=== PATIENT | female | born 1975 | race Two or more races ===

== ENCOUNTER → 2023-02-03 | Outpatient (CLI) | payer BC | END | disposition home or self-care (01) | LOC: LAB 08:39 | PROVIDERS: ATTEND Licensed Practical Nurse | DX: N39.0 Urinary tract infection, site not specified (principal) | CPT/HCPCS: 87086 ==

== ENCOUNTER → 2023-03-07 | Outpatient (CLI) | payer BC ==
[2023-03-07 09:31] LABS: Basophils # (auto) 0 10 ^3/uL (0-0.2); Basophils % (auto) 0.6 % (0.0-2.0); Eosinophils # (auto) 0.4 10 ^3/uL (0-0.8); Eosinophils % (auto) 5.3 % (0.0-7.0); Hematocrit 42.8 % (36.0-46.0); Hemoglobin 14.5 g/dL (12.2-16.2); Lymphocytes # (auto) 1.6 10 ^3/uL (0.4-5.4); Lymphocytes % (auto) 23.5 % (10.0-50.0); Mean Corpuscular Hemoglobin 30.3 pg (28.0-32.0); Mean Corpuscular Volume 89.1 fL (80.0-100.0); Monocytes # (auto) 0.6 10 ^3/uL (0-1.3); Monocytes % (auto) 8.7 % (0.0-12.0); Neutrophils # (auto) 4.2 10 ^3/uL (1.6-8.6); Neutrophils % (auto) 61.9 % (37.0-80.0); Red Blood Cells 4.81 10^6/uL (4.0-5.20); Red Cell Distribution Width 13.4 % (11.8-14.3); White Blood Cell 6.8 10^3/uL (4.4-10.8)
[2023-03-07 10:41] LABS: Albumin 3.5 g/dL (3.4-5.0); Calcium 8.8 mg/dL (8.5-10.1); Potassium 4.8 mmol/L (3.5-5.1)
[2023-03-07 10:46] LABS: BUN/Creatinine Ratio 8.5 (10.0-20.0); Bilirubin, Total 0.7 mg/dL (0.2-1.0); Total Protein 6.8 g/dL (6.4-8.2)
== END | disposition home or self-care (01) ==
LOC: LAB 09:21
DX: Z00.01 Encounter for general adult medical examination with abnormal findings (principal); I10 Essential (primary) hypertension; E66.09 Other obesity due to excess calories
CPT/HCPCS: 36415; 80053; 80061; 82306; 84439; 84443; 85025

== ENCOUNTER → 2024-04-05 | Outpatient (CLI) | payer BC ==
[2024-04-05 07:59] LABS: Basophils # (auto) 0 10 ^3/uL (0-0.2); Basophils % (auto) 0.7 % (0.0-2.0); Eosinophils # (auto) 0.3 10 ^3/uL (0-0.8); Eosinophils % (auto) 4.9 % (0.0-7.0); Hematocrit 40.3 % (36.0-46.0); Hemoglobin 14.1 g/dL (12.2-16.2); Lymphocytes # (auto) 1.1 10 ^3/uL (0.4-5.4); Lymphocytes % (auto) 18.1 % (10.0-50.0); Mean Corpuscular Hemoglobin 31.5 pg (28.0-32.0); Mean Corpuscular Hgb Conc. 34.9 g/dL (32.0-36.0); Mean Corpuscular Volume 90.2 fL (80.0-100.0); Monocytes # (auto) 0.4 10 ^3/uL (0-1.3); Monocytes % (auto) 6.8 % (0.0-12.0); Neutrophils # (auto) 4.4 10 ^3/uL (1.6-8.6); Neutrophils % (auto) 69.5 % (37.0-80.0); Nucleated Red Blood Cells % 0.1 %; Red Blood Cells 4.46 10^6/uL (4.0-5.20); Red Cell Distribution Width 12.5 % (11.8-14.3); White Blood Cell 6.3 10^3/uL (4.4-10.8)
[2024-04-05 08:28] LABS: Alanine Aminotransferase 49 U/L (7-40); Albumin 4.3 g/dL (3.2-4.8); Alkaline Phosphatase 97 U/L (46-116); Anion Gap 6 (5-15); Aspartate Aminotransferase 15 U/L (13-40); BUN/Creatinine Ratio 9.6 (10.0-20.0); Blood Urea Nitrogen 10 mg/dL (9-23); Carbon Dioxide 26 mmol/L (20-30); Chloride 108 mmol/L (98-107); Cholesterol 161 mg/dL (< 200); Glucose 109 mg/dL (74-106); HDL Cholesterol 39 mg/dL (40-59); LDL Cholesterol 95 mg/dL (< 100); Potassium 4.5 mmol/L (3.5-5.1); Sodium 140 mmol/L (136-145); Triglycerides 199 mg/dL (< 150)
[2024-04-05 08:29] LABS: Bilirubin, Total 0.5 mg/dL (0.2-1.0); Total Protein 6.2 g/dL (5.7-8.2)
== END | disposition home or self-care (01) ==
LOC: LAB 07:30
PROVIDERS: ATTEND Nurse Practitioner Family
DX: I10 Essential (primary) hypertension (principal); E66.01 Morbid (severe) obesity due to excess calories; E78.5 Hyperlipidemia, unspecified; E55.9 Vitamin D deficiency, unspecified
CPT/HCPCS: 36415; 80053; 80061; 82306; 84439; 84443; 85025

== ENCOUNTER → 2024-11-01 | Outpatient (CLI) | payer BC ==
[2024-11-01 08:38] LABS: Basophils # (auto) 0 10 ^3/uL (0-0.2); Basophils % (auto) 0.9 % (0.0-2.0); Eosinophils # (auto) 0.1 10 ^3/uL (0-0.8); Hemoglobin 14.8 g/dL (12.2-16.2); Lymphocytes # (auto) 1.2 10 ^3/uL (0.4-5.4); Lymphocytes % (auto) 24.4 % (10.0-50.0); Mean Corpuscular Hemoglobin 29.8 pg (28.0-32.0); Mean Corpuscular Hgb Conc. 33.5 g/dL (32.0-36.0); Monocytes # (auto) 0.4 10 ^3/uL (0-1.3); Monocytes % (auto) 8.9 % (0.0-12.0); Neutrophils # (auto) 3.2 10 ^3/uL (1.6-8.6); Neutrophils % (auto) 63.8 % (37.0-80.0); Nucleated Red Blood Cells % 0.1 %; Platelet Count (auto) 178 10^3/uL (140-450); Red Blood Cells 4.95 10^6/uL (4.0-5.20); Red Cell Distribution Width 12.8 % (11.8-14.3); White Blood Cell 5.1 10^3/uL (4.4-10.8)
[2024-11-01 09:11] LABS: Albumin 4.8 g/dL (3.2-4.8); Alkaline Phosphatase 82 U/L (46-116); Anion Gap 9 (5-15); Aspartate Aminotransferase 20 U/L (13-40); BUN/Creatinine Ratio 15.5 (10.0-20.0); Blood Urea Nitrogen 15 mg/dL (9-23); Calcium 9.8 mg/dL (8.7-10.4); Carbon Dioxide 25 mmol/L (20-31); Chloride 104 mmol/L (98-107); Glucose 101 mg/dL (74-106); Potassium 4.6 mmol/L (3.5-5.1); Sodium 138 mmol/L (136-145); Total Protein 6.9 g/dL (5.7-8.2); Triglycerides 115 mg/dL (< 150)
[2024-11-01 09:12] LABS: Bilirubin, Total 0.8 mg/dL (0.2-1.0); Cholesterol 182 mg/dL (< 200); HDL Cholesterol 40 mg/dL (40-59)
[2024-11-01 09:23] LABS: Alanine Aminotransferase 45 U/L (7-40); LDL Cholesterol 129 mg/dL (< 100)
== END | disposition home or self-care (01) ==
LOC: LAB 08:15
PROVIDERS: ATTEND Nurse Practitioner Family
DX: I10 Essential (primary) hypertension (principal); E55.9 Vitamin D deficiency, unspecified; E78.1 Pure hyperglyceridemia; Z00.01 Encounter for general adult medical examination with abnormal findings
CPT/HCPCS: 36415; 80053; 80061; 82306; 84443; 85025

== ENCOUNTER 2025-05-17 10:07 | Day surgery (SDC) | payer BC ==
[2025-05-12 09:20] LABS: Hematocrit 42.9 % (36.0-46.0); Hemoglobin 15.0 g/dL (12.2-16.2); Mean Corpuscular Hemoglobin 31.0 pg (28.0-32.0); Mean Corpuscular Volume 88.6 fL (80.0-100.0); Nucleated Red Blood Cells % 0.1 %
[2025-05-12 09:37] LABS: INR 0.98 (0.9-1.15); Partial Thromboplastin Time 28.8 SEC (24.5-34.5); Prothrombin Time 10.4 sec (9.3-11.8)
[2025-05-12 10:05] LABS: Albumin 4.5 g/dL (3.2-4.8); Alkaline Phosphatase 92 U/L (46-116); Anion Gap 8 (5-15); BUN/Creatinine Ratio 7.0 (10.0-20.0); Bilirubin, Total 0.8 mg/dL (0.2-1.0); Calcium 9.2 mg/dL (8.7-10.4); Carbon Dioxide 27 mmol/L (20-31); Chloride 105 mmol/L (98-107); Glucose 103 mg/dL (74-106); Potassium 4.4 mmol/L (3.5-5.1); Sodium 140 mmol/L (136-145); Total Protein 6.9 g/dL (5.7-8.2)
[2025-05-12 10:07] LABS: Alanine Aminotransferase 41 U/L (7-40); Blood Urea Nitrogen 7 mg/dL (9-23)
[~2025-05-17] VITALS: Ht 172.7 cm; Wt 113.4 kg
[~2025-05-17 10:07] MED LIST: CHOL20007 OR; LACTCAP35 OR; OMEP20TA PO
[2025-05-17] MEDS ORDERED: SODIUM CHLORIDE LOCK 10 ML ONE (11:47)
[2025-05-17 12:15] VITALS: PULSE 82; RESP 12; O2SAT 100
[2025-05-17] MEDS: fentaNYL CITRATE 100 MCG/2 ML VL ONE ×2 (12:19→12:22)
[2025-05-17] MEDS: diphenhdrAMINE HCL 50 MG/1 ML VL ONE (12:19)
[2025-05-17] MEDS: MIDAZOLAM HCL 5 MG/ML-1ML VIAL ONE (12:19)
[2025-05-17] MEDS: MIDAZOLAM HCL 2MG/2ML 2ml VIAL (1mg/ml) ONE (12:49)
[2025-05-17 13:00] VITALS: PULSE 82; RESP 14; TEMP 98.8; O2SAT 100
--- NOTE | 2025-05-17 13:16 | DVHOP2 ---
Operative Report DATE OF OPERATION: 05/17/25 PROCEDURE: Colonoscopy with hot snare polypectomy PREOPERATIVE INDICATION: The patient is a 50 -year-old female undergoing colonoscopy for colon cancer screening POSTOPERATIVE DIAGNOSES: 1. Patient had a very prominent polypoid ileocecal valve from which biopsies were obtained to rule out adenoma 2. 2 cm benign-appearing sigmoid polyp was seen and removed completely via hot snare polypectomy in a piecemeal fashion and an adjacent 5 mm polyp was also seen and removed by hot snare polypectomy 3. There was a 1.5 to 2 cm benign-appearing polyp seen just above the anal verge which was removed via hot snare polypectomy again in a piecemeal fashion completely and a smaller 2 mm polyp was seen and removed by cold biopsy forceps 4. Patient had moderate sigmoid diverticular disease with diverticular associated sigmoiditis 5. Trace to 1+ internal hemorrhoids otherwise normal examination up to the cecum PROCEDURE PERFORMED BY: Niranjan Elizabeth M.D. SCOPE: Olympus videocolonoscope. ASA CLASS: 2 PREOPERATIVE MEDICATIONS: Versed 7 mg, Fentanyl 200 mcg, Benadryl 50 mg PROCEDURE IN DETAIL: After obtaining an informed consent, the patient was placed on left lateral decubitus position. She was then sedated with the above medications. A rectal examination was performed that was normal. The colonoscope was then passed through the anus into the rectosigmoid and through the descending, transverse, and ascending colon up to the cecum with visualization of the appendiceal orifice, base of the cecum and the ileocecal valve. The colonoscope was then withdrawn. Patient had a very prominent polypoid appearing ileocecal valve. Multiple biopsies were obtained to rule out adenoma . Patient had moderate scattered diverticular disease most prominent in the sigmoid with sigmoid muscular hypertrophy and diverticular associated sigmoiditis Sigmoid colon there was a 2 cm polyp that was seen and removed completely via hot snare polypectomy and the specimens were retrieved There was an adjacent 5 mm benign-appearing polyp that was seen and removed by hot snare polypectomy and the specimens were retrieved On retroflexion patient was noted to have a 1.5 cm rectal polyp just above the anal verge This was removed completely via hot snare polypectomy in a piecemeal fashion An adjacent 2 mm polyp was removed by cold biopsy forceps On retroflexion and straight on view she had trace to 1+ internal hemorrhoids Patient tolerated the procedure well WITHDRAWAL TIME: 15 minutes QUALITY OF THE PREP: Moody Bowel Prep score: 9. COMPLICATIONS : None SPECIMENS: Ileocecal valve biopsy Sigmoid polyps Rectal polyps DISPOSITION: Stable Discharge to home PLAN: 1. Repeat colonoscopy base on biopsy result possibly in 1-2 to re-evaluate anorectal polypectomy site and the ileocecal valve area 2. Recommend MAC sedation for further colonoscopies 3. Increase fluid and fiber intake 4. Resume GI soft diet advance as tolerated 5. Hold aspirin NSAIDs blood thinners for one week 6. Outpatient follow up with me in 2-4 weeks to review results and discuss further management NIRANJAN ELIZABETH MD May 17, 2025 13:16
[2025-05-17 13:30] VITALS: BP 128/59; PULSE 80; RESP 18; O2SAT 100
== END 2025-05-17 13:43 | disposition home or self-care (01) ==
LOC: GI 10:07
PROVIDERS: ATTEND Internal Medicine Gastroenterology
DX: Z12.11 Encounter for screening for malignant neoplasm of colon (principal); D12.5 Benign neoplasm of sigmoid colon; D12.8 Benign neoplasm of rectum; K57.30 Diverticulosis of large intestine without perforation or abscess without bleeding; K64.8 Other hemorrhoids; E66.9 Obesity, unspecified; K52.89 Other specified noninfective gastroenteritis and colitis; Z90.710 Acquired absence of both cervix and uterus; Z87.891 Personal history of nicotine dependence; Z79.899 Other long term (current) drug therapy
CPT/HCPCS: 36415; 45380; 45385; 80053; 81025; 85025; 85610; 85730; 88305; J1200; J2250; J3010; J7030; 99152; 99153